=== PATIENT | male | born 2000 | race African-American/Black ===

== ENCOUNTER 2023-05-06 08:28 | Inpatient (IN) | payer MEDICAID ==
[~2023-05-06] VITALS: Ht 167.6 cm; Wt 82.1 kg
[2023-05-06 09:15] LABS: BASOPHILS % (AUTO) 0.5 % (0.0-2.0); EOSINOPHILS % (AUTO) 3.1 % (1.0-6.0); HEMATOCRIT 45.1 % (41-53); HEMOGLOBIN 15.2 g/dL (13.5-17.5); LYMPHOCYTES # (AUTO) 1.5 K/uL (1.0-4.8); LYMPHOCYTES % (AUTO) 19.6 % (22.0-44.0); MEAN CORPUSCULAR HEMOGLOBIN 29.1 pg (26.0-34.0); MEAN CORPUSCULAR HGB CONC 33.7 G/dL (31.0-37.0); MEAN CORPUSCULAR VOLUME 86 fL (80-100); MONOCYTES # (AUTO) 0.5 K/uL (0.1-1.0); MONOCYTES % (AUTO) 6.2 % (2.0-9.0); NEUTROPHILS # (AUTO) 5.3 K/uL (1.8-7.7); NEUTROPHILS % (AUTO) 70.6 % (40.0-70.0); PLATELET COUNT (AUTO) 241 K/uL (150-450); RED BLOOD CELL COUNT(AUTO) 5.23 MIL/uL (4.50-5.90); RED CELL DISTRIBUTION WIDTH 13.1 % (11.5-14.5); WHITE BLOOD COUNT (AUTO) 7.5 K/uL (4.5-11.0)
[2023-05-06 09:24] LABS: ANION GAP 6 mmol/L (8-16); CALCIUM, TOTAL 8.6 mg/dL (8.8-10.5); CARBON DIOXIDE 30 mmol/L (22-29); CHLORIDE 102 mmol/L (98-107); GLOMERULAR FILTR. RATE CALC > 60 mL/min (>60); GLUCOSE,RANDOM 89 mg/dL (70-110); POTASSIUM 3.8 mmol/L (3.5-5.1); SODIUM SERUM 138 mmol/L (136-145); UREA NITROGEN, BLOOD 12 mg/dL (7-18)
[2023-05-06 09:25] LABS: ALCOHOL, BLOOD (SERUM) < 3 mg/dL (0-10)
[2023-05-06 09:28] LABS: COVID AG,FIA SOURCE NASAL SWAB
[2023-05-06 09:30] LABS: ALANINE AMINOTRANSFERASE 60 U/L (12-78); ALBUMIN 3.9 g/dL (3.4-5.0); ALKALINE PHOSPHATASE 79 U/L (46-116); ASPARTATE AMINOTRANSFERASE 29 U/L (15-37); BILIRUBIN,TOTAL 1.9 mg/dL (0.1-1.0); TOTAL PROTEIN, SERUM 7.9 g/dL (6.4-8.2)
[2023-05-06 09:39] LABS: ALCOHOL, URINE DRUG SCREEN NEGATIVE (NEGATIVE); AMPHET/METH SCREEN,URINE NEGATIVE (NEGATIVE); BARBITURATE SCREEN, URINE NEGATIVE (NEGATIVE); BENZODIAZEPINES SCREEN,URINE NEGATIVE (NEGATIVE); CANNABINOID SCREEN,URINE NEGATIVE (NEGATIVE); COCAINE SCREEN,URINE NEGATIVE (NEGATIVE); METHADONE SCREEN, URINE NEGATIVE (NEGATIVE); OPIATE SCREEN,URINE NEGATIVE (NEGATIVE); PHENCYCLIDINE SCREEN,URINE NEGATIVE (NEGATIVE)
[2023-05-06 09:48] LABS: SARS-COV2 (COVID) ANTIGEN,FIA Negative (Negative)
[2023-05-06] MEDS ORDERED: OLANZapine 5 MG RAPDIS TABLET PO PRN (10:15)
[2023-05-06] MEDS ORDERED: ZOLPIDEM TARTRATE 10 MG TABLET PO PRN (10:15)
[2023-05-06] MEDS ORDERED: LORazepam 2 MG TABLET PO PRN (10:15)
[2023-05-06 10:48] LABS: APPEARANCE,URINE CLEAR (CLEAR); BILIRUBIN,URINE NEGATIVE (NEGATIVE); COLOR,URINE LIGHT YELLOW (YELLOW); GLUCOSE, URINE (UA) NEGATIVE (NEGATIVE); KETONES,URINE NEGATIVE (NEGATIVE); LEUKOCYTE ESTERASE ,URINE NEGATIVE (NEGATIVE); NITRATE,URINE NEGATIVE (NEGATIVE); OCCULT BLOOD,URINE NEGATIVE (NEGATIVE); PROTEIN,URINE NEGATIVE (NEGATIVE); SPECIFIC GRAVITIY, URINE 1.027 (1.003-1.030); UROBILINOGEN,URINE <=1.0 mg/dL (<=1.0)
[2023-05-06] MEDS ORDERED: SERT-439 PO (11:28)
[2023-05-06] MEDS ORDERED: HYDR10TA31 PO (12:18)
[2023-05-06] MEDS ORDERED: TUBERCULIN, PURIFIED PROTEIN DERIVATIVE 5 TU/0.1 ML SYRINGE ID ONE ×2 (15:45)
[2023-05-06] MEDS ORDERED: HydrOXYzine PAMOATE 50 MG CAPSULE PO PRN (15:45)
[2023-05-06] MEDS ORDERED: MAG HYDROX/ALUMINUM HYD/SIMETH ES 30 ML SUSPENSION UDCUP PO PRN ×2 (15:45)
[2023-05-06] MEDS ORDERED: LOPERAMIDE HCL 2 MG CAPSULE PO PRN ×2 (15:45)
[2023-05-06] MEDS ORDERED: PROMETHAZINE HCL 25 MG TABLET PO PRN ×2 (15:45)
[2023-05-06] MEDS ORDERED: GuaiFENesin/D-METHORPHAN [SUGAR-FREE] 200-20MG/10 ML SYRUP UDCUP PO PRN ×2 (15:45)
[2023-05-06] MEDS ORDERED: MAGNESIUM HYDROXIDE SUSPENSION 30 ML UDCUP PO PRN ×2 (15:45)
[2023-05-06] MEDS ORDERED: ACETAMINOPHEN 325 MG TABLET PO PRN ×2 (15:45)
[2023-05-06 16:41] VITALS: BP 126/70; PULSE 67; RESP 18; TEMP 97.6; O2SAT 97
[2023-05-06] MEDS ORDERED: THIAMINE 100 MG TABLET PO SCH (17:00)
[2023-05-06] MEDS ORDERED: INFLUENZA VIRUS VACCINE QVS 2023-24 (6MO+)/PF 60 MCG/0.5 ML SYRINGE IM. ONE (17:00)
[2023-05-06] MEDS: THIAMINE 100 MG TABLET PO SCH (17:22)
[2023-05-06 20:02] VITALS: BP 126/70; PULSE 67; RESP 18; TEMP 97.6; O2SAT 97
[2023-05-06] MEDS: MELATONIN 5 MG TABLET PO SCH (20:07)
[2023-05-07 08:19] VITALS: BP 120/62; PULSE 75; RESP 18; TEMP 96.5; O2SAT 98
[2023-05-07] MEDS: OMEGA-3/DHA/EPA/FISH OIL 1,000 MG CAPSULE PO SCH (08:32)
[2023-05-07] MEDS: THIAMINE 100 MG TABLET PO SCH ×2 (08:33→16:53)
[2023-05-07] MEDS: MULTIVITAMINS WITH MINERALS, THERAPEUTIC TABLET PO SCH (08:33)
[2023-05-07] MEDS: FOLIC ACID 1 MG TABLET PO SCH (08:33)
[2023-05-07] MEDS: NALTREXONE HCL 50 MG TABLET PO SCH (08:33)
[2023-05-07 08:40] LABS: HEMOGLOBIN A1C 5.8 % (3.8-5.6)
[2023-05-07 08:46] LABS: CHOL/HDL RATIO 4.9 (4.2-7.3); FREE T4 (FREE THYROXINE) 0.86 ng/dL (0.76-1.46); THYROID STIMULATING HORMONE 0.83 uIU/mL (0.36-3.74)
[2023-05-07] MEDS ORDERED: MULTIVITAMINS WITH MINERALS, THERAPEUTIC TABLET PO SCH (09:00)
[2023-05-07] MEDS ORDERED: FLUoxetine HCL 20 MG CAPSULE PO SCH (09:00)
[2023-05-07] MEDS ORDERED: FOLIC ACID 1 MG TABLET PO SCH (09:00)
[2023-05-07 20:01] VITALS: BP 124/81; PULSE 69; RESP 18; TEMP 97.6; O2SAT 96
[2023-05-07] MEDS: MELATONIN 5 MG TABLET PO SCH (20:03)
[2023-05-07] MEDS ORDERED: ARIPiprazole 2 MG TABLET PO SCH (21:00)
[2023-05-07] MEDS ORDERED: SERTRALINE HCL 50 MG TABLET PO SCH (21:00)
[2023-05-08 02:06] LABS: HEPATITIS C AB (EIA) Non Reactive (Non Reactive)
[2023-05-08 08:08] VITALS: BP 129/72; PULSE 74; RESP 18; TEMP 97.7; O2SAT 97
[2023-05-08] MEDS: FOLIC ACID 1 MG TABLET PO SCH (08:22)
[2023-05-08] MEDS: OMEGA-3/DHA/EPA/FISH OIL 1,000 MG CAPSULE PO SCH (08:22)
[2023-05-08] MEDS: THIAMINE 100 MG TABLET PO SCH ×2 (08:22→15:17)
[2023-05-08] MEDS: NALTREXONE HCL 50 MG TABLET PO SCH (08:22)
[2023-05-08] MEDS: MULTIVITAMINS WITH MINERALS, THERAPEUTIC TABLET PO SCH (08:23)
[2023-05-08] MEDS ORDERED: SERT-439 PO (15:50)
[2023-05-08] MEDS ORDERED: MELA5TAB40 PO (15:50)
[2023-05-08] MEDS ORDERED: ARIP2TAB27 PO (15:50)
[2023-05-08] MEDS ORDERED: OMEG-135 PO (15:50)
[2023-05-08] MEDS ORDERED: NALT50TA PO (15:50)
[2023-05-08 20:29] VITALS: BP 130/75; PULSE 79; RESP 19; TEMP 97.8; O2SAT 98
[2023-05-08] MEDS: MELATONIN 5 MG TABLET PO SCH (20:42)
[2023-05-08] MEDS ORDERED: SERTRALINE HCL 50 MG TABLET PO SCH (21:00)
[2023-05-08] MEDS ORDERED: ARIPiprazole 5 MG TABLET PO SCH (21:00)
[2023-05-09 05:12] VITALS: BP 136/93; PULSE 79; RESP 18; TEMP 97.6
[2023-05-09] MEDS: OMEGA-3/DHA/EPA/FISH OIL 1,000 MG CAPSULE PO SCH (08:43)
[2023-05-09] MEDS: FOLIC ACID 1 MG TABLET PO SCH (08:44)
[2023-05-09] MEDS: MULTIVITAMINS WITH MINERALS, THERAPEUTIC TABLET PO SCH (08:44)
[2023-05-09] MEDS: NALTREXONE HCL 50 MG TABLET PO SCH (08:44)
[2023-05-09] MEDS: THIAMINE 100 MG TABLET PO SCH (08:44)
[2023-05-09 09:20] VITALS: BP 123/68; PULSE 74; RESP 17; TEMP 97.9; O2SAT 97
== END 2023-05-09 10:45 | disposition left against medical advice (07) | DRG 751 ==
LOC: EMS 08:32 → B2S 14:18
PROVIDERS: ADMIT Psychiatry & Neurology Psychiatry; ATTEND Psychiatry & Neurology Psychiatry
DX: F33.2 Major depressive disorder, recurrent severe without psychotic features (principal); R45.851 Suicidal ideations; F20.9 Schizophrenia, unspecified; Z20.822 Contact with and (suspected) exposure to COVID-19; F43.10 Post-traumatic stress disorder, unspecified; Z79.899 Other long term (current) drug therapy; Z53.21 Procedure and treatment not carried out due to patient leaving prior to being seen by health care provider
CPT/HCPCS: 80053; 80061; 80307; 81003; 83036; 84439; 84443; 85025; 86592; 86803; 87340; 99285; G0480; Q9967